=== PATIENT | female | born 1980 ===

== ENCOUNTER 2019-06-18 16:53 | Outpatient (REF) | payer OTHER, SELFPAY ==
--- NOTE | 2019-06-18 16:00 | PAPFT_PTH ---
PATIENT: LEXIE WISE LOC: [facility] U#:[id number] AGE/SX: 38/F ROOM: RE06/18/[address]: Sabrina Toro : 1980 BED: DIS: 06/18/2019 SPEC #: [id number] RECD: 06/19/19 12:47 STATUS: GILBERT REChandrika #: [id number] AMERICO: 06/18/19 16:[address]: Sabrina Toro DEPT: [facility] Cytology RECD BY: Christine Raymond Tissues: 1 - CX/ENDOCX FOR PAP SMEARS Procedures: PAP THIN PREP/[facility] Screening HPV DNA PROBE Comments: [id number]
== END 2019-06-18 17:13 ==
LOC: NCHCN 16:53
PROVIDERS: PCP Nurse Practitioner Family; Visit Provider Nurse Practitioner Family
DX: Z12.4 Encounter for screening for malignant neoplasm of cervix (principal); Z11.51 Encounter for screening for human papillomavirus (HPV)
CPT/HCPCS: 88142; 87624